=== PATIENT | male | born 1975 | race Caucasian/White ===

== ENCOUNTER 2017-07-10 18:50 | Emergency (ER) | payer OTHER ==
[~2017-07-10] VITALS: Ht 172.7 cm; Wt 117.9 kg
--- NOTE | ~2017-07-10 | EKG ---
[place] [address] [facility] [address] ELECTROCARDIOGRAM REPORT Name: [facility]HE[facility] Room #: DEP Radha#: [id number] Admission: 07/10/17 Attend Phys: Discharge: 07/10/17 Date of : 75 Report #: [id number] THIS REPORT FOR: //name// [facility] ED Test Date: 2017-07-10 Test Time: 18:52:59 Pat Name: RHEA NGO Department: Room: Gender: M It Security Administrator: KKODJOVI : 1975 Requested By: Win Ayala Order Number: [id number] MD: Shane Rose Measurements Intervals [place] Rate: 88 P: 18 MS: 120 QRS: -2 QRSD: 87 T: 18 QT: 340 QTc: 412 Interpretive Statements Sinus rhythm No significant abnormality No previous ECG available for comparison Electronically Signed On 07-11-2017 8:41:43 [employer] by Shane Rose [email or web address] <ELECTRONICALLY SIGNED> By: Shane Rose MD, [facility] 07/11/17 [id number] Shane Rose MD, FACC /EPI
[2017-07-10 19:11] LABS: ABSOLUTE NEUTROPHILS 10.4 thou/uL (1.4-8.2); BASOPHILS 1.3 % (0.0-2.0); EOSINOPHILS 1.1 % (0.0-3.0); HEMATOCRIT 46.5 % (42.0-52.0); HEMOGLOBIN 15.6 gm/dL (14.0-18.0); LYMPHOCYTES 22.8 % (24.0-44.0); MCH 29.8 pg (26.0-34.0); MCHC 33.6 g/dL (28.0-37.0); MCV 88.7 fL (80.0-100.0); MONOCYTES 8.1 % (1.0-8.0); PLATELET COUNT 279 thou/uL (150-400); POLYS 66.7 % (36.0-66.0); RBC 5.24 mil/uL (4.50-6.00); WBC 15.6 thou/uL (4.0-11.0)
[2017-07-10 19:22] LABS: ANION GAP 10 mmol/L (7-16); BUN 14 mg/dL (7-18); CALCIUM 9.1 mg/dL (8.5-10.1); CHLORIDE 105 mmol/L (98-107); CO2 25 mmol/L (21-32); CREATININE 1.1 mg/dL (0.7-1.3); GLUCOSE 103 mg/dL (74-106); SODIUM 140 mmol/L (136-145)
[2017-07-10] MEDS ORDERED: SYNTHROID50 MCG PO (19:26)
[2017-07-10] MEDS ORDERED: LISINOPRIL10 MG PO (19:26)
[2017-07-10] MEDS ORDERED: AMBIEN 5 MG TABL5 M1 PO (19:27)
[2017-07-10] MEDS ORDERED: TOPROL XL25 MG PO (19:27)
[2017-07-10] MEDS ORDERED: IBUPROFEN 800800 M1 PO (19:28)
[2017-07-10] MEDS ORDERED: PERCOCET 7.5-31 EACH PO (19:28)
[2017-07-10] MEDS ORDERED: CLONAZEPAM 1 MG1 M1 PO (19:28)
[2017-07-10] MEDS ORDERED: CELEXA20 MG PO (19:28)
[2017-07-10 19:31] LABS: TROPONIN-I < 0.04 ng/mL (<0.06)
[2017-07-10 19:37] LABS: LARGE PLATELETS RARE
[2017-07-10 21:05] LABS: URINE BILIRUBIN NEGATIVE (Negative); URINE BLOOD NEGATIVE (Negative); URINE CLARITY CLEAR; URINE COLOR YELLOW; URINE GLUCOSE-RANDOM* NEGATIVE (Negative); URINE KETONES NEGATIVE (Negative); URINE LEUKOCYTES NEGATIVE (Negative); URINE NITRITE NEGATIVE (Negative); URINE PROTEIN (DIPSTICK) 1+ (Negative); URINE SPECIFIC GRAVITY 1.025 (1.005-1.035); URINE UROBILINOGEN 0.2 E.U./dl (0.2-1.0)
[2017-07-10 21:13] LABS: BACTERIA None Seen /HPF (None Seen); CASTS None Seen /LPF (None Seen); CRYSTALS None Seen /LPF (None Seen); SQUAMOUS None Seen /LPF (0-3); URINE RBC None Seen /HPF (0-2); URINE WBC 0-5 Rare /HPF (0-5)
[2017-07-10 21:14] LABS: AMP/METHAMP Negative (Negative); BARBITURATES Negative (Negative); BENZODIAZEPINES POSITIVE (Negative); COCAINE Negative (Negative); METHADONE Negative (Negative); OPIATES Negative (Negative); PCP Negative (Negative)
== END 2017-07-10 22:13 | disposition home or self-care (01) ==
LOC: ER 18:50
PROVIDERS: Nurse Practitioner
DX: R07.89 Other chest pain (principal); R51 Headache; R42 Dizziness and giddiness; Z88.1 Allergy status to other antibiotic agents